=== PATIENT | male | born 1980 | race Caucasian/White ===

== ENCOUNTER 2019-01-23 14:49 | Emergency (ER) | payer MEDICAID, OTHER ==
[~2019-01-23] VITALS: Ht 165.1 cm; Wt 98.2 kg
[2019-01-23 16:01] VITALS: BP 129/63; PULSE 82; RESP 20; Ht 165.1 cm; Wt 98.2 kg
[2019-01-23] MEDS ORDERED: AZIT250T PO (17:56)
[2019-01-23] MEDS ORDERED: D-ME473S2 PO (17:56)
[2019-01-23] MEDS ORDERED: ACET500C5 PO (17:56)
--- NOTE | 2019-01-23 17:58 | ERD ---
ER Documentation Chief Complaint Chief Complaint cough, sneezing, weakness, x 3 weeks, nose bleed; not in resp distress HPI 38-year-old male presents with worsening productive cough for last 3 weeks. Denies any fevers. Concerned because he had a nosebleed last day although nosebleed is currently stopped. Denies any chest pain, vomiting, abdominal pain. ROS All systems reviewed and are negative except as per history of present illness. Medications Home Meds Active Scripts Acetaminophen* (Tylophen*) 500 Mg Capsule, 1 CAP PO Q6H PRN for PAIN AND OR ELEVATED TEMP, #15 CAP Prov:ALEJA VASQUEZ MD 01/23/19 Dextromethorphan Hb-Promethazine Hcl* (Promethazine DM* Syrup) 473 Ml Syrup, 5 ML PO Q6 PRN for COUGH for 5 Days, ML Prov:ALEJA VASQUEZ MD 01/23/19 Azithromycin* (Zithromax*) 250 Mg Tablet, 250 MG PO .ZPACK DIRECTED, #6 TAB TAKE 500 MG (2 TABS) THE FIRST DAY THEN 250 MG (1 TAB) DAYS 2-5 Prov:ALEJA VASQUEZ MD 01/23/19 Allergies Allergies: Coded Allergies: No Known Allergy (Unverified , 12/11/11) PMhx/Soc History of Surgery: No Anesthesia Reaction: No Hx Neurological Disorder: No Hx Respiratory Disorders: No Hx Cardiac Disorders: No Hx Psychiatric Problems: No Hx Miscellaneous Medical Probl: No Hx Alcohol Use: No Hx Substance Use: No Hx Tobacco Use: No FmHx Family History: No diabetes, No coronary disease, No other Physical Exam Vitals Vital Signs Date Temp Pulse Resp B/P (MAP) Pulse Ox O2 O2 Flow FiO2 Time Delivery Rate 01/23/19 98.4 82 20 129/63 97 16:01 (85) Physical Exam Const: No acute distress Head: Atraumatic Eyes: Normal Conjunctiva ENT: Normal External Ears, Nose and Mouth. As normal. 3+ nasal congestion. Dried blood in nares. No septal hematoma. Postnasal drip. Neck: Full range of motion. No meningismus. Resp: Clear to auscultation bilaterally. No rales, wheezing or retractions. Cardio: Regular rate and rhythm, no murmurs Abd: Soft, non tender, non distended. Normal bowel sounds Skin: No petechiae or rashes Back: No midline or flank tenderness Ext: No cyanosis, or edema Neur: Awake and alert Psych: Normal Mood and Affect Procedures/MDM Patient presents with worsening productive cough for last 3 weeks. Is no evidence of hypoxemia, rest or stress, signs of pneumonia. He had a nosebleed which currently resolved without identified complications. Given the duration of worsening symptoms. We will treat empirically with Zithromax, promethazine, Tylenol, primary care follow-up and return precautions. The patient was stable with no new complaints during the ER course. Clinically, there is no current evidence to suggest meningitis, sepsis, acute abdomen, pneumonia, stroke, acute coronary syndrome, pulmonary embolism, aortic dissection or any other emergent condition appearing to require further evaluation or hospitalization. Patient counseled regarding my diagnostic impression and care plan. Prior to discharge all questions answered. Pt agrees with treatment plan and understands strict return precautions. Pt is instructed to follow up with primary care provider within 24-48 hours. Precautionary instructions provided including instructions to return to the ER if not improving or for any worsening or changing symptoms or concerns. Departure Diagnosis: Primary Impression: Cough Condition: Stable Patient Instructions: Bronchitis, Antiobiotic Treatment (Adult), Epistaxis (Adult) Referrals: NO PRIMARY,CARE PHYSICIAN (PCP) Additional Instructions: Recheck for new or worsening symptoms with primary care doctor. ALEJA VASQUEZ MD Jan 23, 2019 17:58
== END 2019-01-23 18:10 | disposition home or self-care (01) ==
LOC: FTE 14:49
DX: R05 Cough (principal)
CPT/HCPCS: 99283